=== PATIENT | male | born 1945 | race Caucasian/White ===

== ENCOUNTER 2018-10-10 08:01 | Outpatient (REF) | payer OTHER, SELFPAY ==
[2018-10-10 21:50] LABS: Anion Gap 8.2 mmol/L (3-11); BUN 16 mg/dL (7-18); CO2 28.8 mmol/L (21.0-32.0); CREATININE 1.62 mg/dL (0.70-1.30); Calcium 10.6 mg/dL (8.5-10.1); Calculated LDL 147 mg/dL; Chloride 105 mmol/L (98-107); Cholesterol 253 mg/dL (50-200); Estimated GFR 41.86 (mL/min/1.73m2); Glucose 107 mg/dL (70-100); HDL Cholesterol 73 mg/dL (40-60); Potassium 4.4 mmol/L (3.5-5.1); Sodium 142 mmol/L (136-145); Triglyceride 169 mg/dL (30-150)
[2018-10-13 07:12] LABS: Vitamin D 25 Total 76.5 ng/ml (30-100)
== END 2018-10-10 08:21 ==
LOC: NCHCN 08:01
PROVIDERS: PCP Internal Medicine; Visit Provider Internal Medicine
DX: E55.9 Vitamin D deficiency, unspecified (principal); E74.39 Other disorders of intestinal carbohydrate absorption; E78.5 Hyperlipidemia, unspecified; G35 Multiple sclerosis
CPT/HCPCS: 80048; 80061; 82306; 83721

== ENCOUNTER 2018-10-15 21:50 | Outpatient (REF) | payer OTHER, SELFPAY ==
[2018-10-15 21:27] LABS: Bilirubin Negative (Negative); Blood Negative (Negative); Clarity Cloudy (Clear); Glucose Negative (Negative); Ketones Negative (Negative); Leukocyte Esterase Large (Negative); Nitrite Positive (Negative); Specific Gravity 1.015 (1.005-1.025); Urobilinogen 0.2 EU/dL (Up TO 0.2); pH 8.5 (5-8)
[2018-10-15 22:21] LABS: Bacteria Moderate HPF (Negative); C & S Indicated? Yes; Casts Negative LPF (Negative); Crystals Rare Amorphous HPF (Negative); Epithelial Cells Rare HPF (Negative); Mucus Negative (Negative); Other Cells Negative (Negative); RBC Negative (0-2); WBC 20-50 HPF (0-5)
== END 2018-10-15 22:10 ==
LOC: NCHCN 21:50
PROVIDERS: PCP Internal Medicine; Visit Provider Internal Medicine
DX: N18.9 Chronic kidney disease, unspecified (principal); R82.90 Unspecified abnormal findings in urine
CPT/HCPCS: 81003; 81015; 82043; 82570; 87086

== ENCOUNTER 2018-11-11 12:30 | Outpatient (REF) | payer OTHER, SELFPAY ==
[2018-11-11 20:53] LABS: Abs Immature Grans 0.01 k/cumm (0.0-0.09); Absolute Basophil Count 0.04 k/cumm (0.0-0.2); Absolute Eosinophil Count 0.18 k/cumm (0.0-0.7); Absolute Lymphocyte Count 0.94 k/cumm (1.2-3.4); Absolute Monocyte Count 0.42 k/cumm (0.11-0.7); Absolute Neutrophil Count 2.07 k/cumm (1.2-6.7); Basophils % 1.1; Eosinophils % 4.9; HCT 41.1 % (40.0-50.0); HGB 13.3 g/dL (13.5-17.5); Immature Grans % 0.3; Lymphocytes % 25.7; Mean Corp. HGB Concentration 32.4 g/dL (32.0-36.0); Mean Corpuscular Hemoglobin 28.9 pg (27.0-33.0); Mean Corpuscular Volume 89.2 fL (80-95); Mean Platelet Volume 10.8 fL (8.0-11.0); Monocytes % 11.5; Neutrophils % 56.5; Platelet Count 246 x1000/uL (130-400); RBC 4.61 m/cumm (4.50-6.00); RBC Distribution Width 14.4 % (11.8-14.1); White Blood Cell Count 3.66 k/cumm (4.4-10.8)
[2018-11-11 21:06] LABS: BUN 17 mg/dL (7-18); C-Reactive Protein 0.51 mg/dL (0.0-0.3); Calcium 10.7 mg/dL (8.5-10.1); Chloride 105 mmol/L (98-107); Estimated GFR 59.18 (mL/min/1.73m2); Glucose 99 mg/dL (70-100); Sodium 141 mmol/L (136-145)
[2018-11-11 21:32] LABS: ESR 20 mm/hr (1-20)
== END 2018-11-11 12:50 ==
LOC: NCHCN 12:30
PROVIDERS: PCP Internal Medicine; Visit Provider Family Medicine
DX: N18.9 Chronic kidney disease, unspecified (principal); G62.9 Polyneuropathy, unspecified; L97.519 Non-pressure chronic ulcer of other part of right foot with unspecified severity; R73.02 Impaired glucose tolerance (oral)
CPT/HCPCS: 80048; 85652; 83036; 85025; 86140

== ENCOUNTER 2018-12-16 13:45 | Outpatient (REF) | payer OTHER, SELFPAY ==
[2018-12-18 15:08] LABS: Albumin 63.1 % (55.8-66.1); Total Protein 7.2 g/dl (6.3-8.2)
== END 2018-12-16 14:05 ==
LOC: NCHCN 13:45
PROVIDERS: PCP Internal Medicine; Visit Provider Internal Medicine
DX: D47.2 Monoclonal gammopathy (principal); D64.9 Anemia, unspecified; N18.9 Chronic kidney disease, unspecified; G62.9 Polyneuropathy, unspecified
CPT/HCPCS: 84165; 86320

== ENCOUNTER 2019-04-20 15:49 | Outpatient (REF) | payer OTHER, SELFPAY ==
[2019-04-20 21:46] LABS: Abs Immature Grans 0.02 k/cumm (0.0-0.09); Absolute Basophil Count 0.05 k/cumm (0.0-0.2); Absolute Eosinophil Count 0.26 k/cumm (0.0-0.7); Absolute Lymphocyte Count 1.27 k/cumm (1.2-3.4); Absolute Monocyte Count 0.48 k/cumm (0.11-0.7); Absolute Neutrophil Count 3.97 k/cumm (1.2-6.7); Basophils % 0.8; Eosinophils % 4.3; HCT 42.9 % (40.0-50.0); Immature Grans % 0.3 %; Mean Corp. HGB Concentration 32.6 g/dL (32.0-36.0); Mean Corpuscular Hemoglobin 28.5 pg (27.0-33.0); Mean Corpuscular Volume 87.4 fL (80-95); Mean Platelet Volume 10.7 fL (8.0-11.0); Monocytes % 7.9; Neutrophils % 65.7; Platelet Count 223 x1000/uL (130-400); RBC 4.91 m/cumm (4.50-6.00); RBC Distribution Width 14.9 % (11.8-14.1); White Blood Cell Count 6.05 k/cumm (4.4-10.8)
[2019-04-20 22:01] LABS: Hemoglobin A1C 6.2 % (3.8-5.6)
[2019-04-20 22:15] LABS: ALT 26 U/L (16-63); AST 23 U/L (15-37); Albumin 4.2 g/dL (3.4-5.0); Alkaline Phosphatase 74 U/L (46-116); Anion Gap 11.8 mmol/L (3-11); BUN 18 mg/dL (7-18); Bilirubin, Total 0.6 mg/dL (0.2-1.0); CO2 26.2 mmol/L (21.0-32.0); CREATININE 1.31 mg/dL (0.70-1.30); Chloride 103 mmol/L (98-107); Estimated GFR 53.49 (mL/min/1.73m2); Glucose 96 mg/dL (74-106); Potassium 5.1 mmol/L (3.5-5.1); Sodium 141 mmol/L (136-145); Total Protein 7.6 g/dL (6.4-8.2)
== END 2019-04-20 16:09 ==
LOC: NCHCN 15:49
PROVIDERS: PCP Internal Medicine; Visit Provider Internal Medicine
DX: D47.2 Monoclonal gammopathy (principal); R73.02 Impaired glucose tolerance (oral); M25.512 Pain in left shoulder
CPT/HCPCS: 80053; 83036; 85025

== ENCOUNTER 2020-04-28 13:57 | Outpatient (REF) | payer OTHER, SELFPAY ==
[2020-04-28 20:44] LABS: Anion Gap 6.4 mmol/L (3-11); BUN 12 mg/dL (7-18); CO2 28.6 mmol/L (21.0-32.0); CREATININE 1.2 mg/dL (0.70-1.30); Calcium 10.2 mg/dL (8.5-10.1); Chloride 103 mmol/L (98-107); Estimated GFR 59.02 (mL/min/1.73m2); Glucose 121 mg/dL (74-106); Potassium 4.6 mmol/L (3.5-5.1); Sodium 138 mmol/L (136-145)
[2020-04-28 20:46] LABS: HCT 45.7 % (40.0-50.0); HGB 14.2 g/dL (13.5-17.5); MCH 26.3 pg (27.0-33.0); MCHC 31.1 % (32.0-36.0); MCV 84.6 fL (80-95); MPV 10.4 fL (8.0-11.0); Platelet Count 230 10^3/uL (130-400); RDW 14.9 % (11.8-14.1); WBC 3.72 10^3/uL (4.4-10.8)
[2020-04-28 21:02] LABS: Hemoglobin A1C 6.3 % (<5.7)
[2020-05-02 06:01] LABS: Vitamin D 25 Total 109.7 ng/ml (30-100)
== END 2020-04-28 14:17 ==
LOC: NCHCN 13:57
PROVIDERS: PCP Internal Medicine; Visit Provider Internal Medicine
DX: D64.9 Anemia, unspecified (principal); R73.03 Prediabetes; N18.9 Chronic kidney disease, unspecified; E67.3 Hypervitaminosis D
CPT/HCPCS: 80048; 82306; 85027; 83036

== ENCOUNTER 2020-10-26 10:10 | Outpatient (REF) | payer OTHER, SELFPAY ==
[2020-10-26 14:41] LABS: ALT 19 U/L (16-63); AST 16 U/L (15-37); Alkaline Phosphatase 110 U/L (46-116); Anion Gap 9.2 mmol/L (3-11); BUN 12 mg/dL (7-18); Bilirubin, Total 0.3 mg/dL (0.2-1.0); CO2 27.8 mmol/L (21.0-32.0); CREATININE 1.2 mg/dL (0.70-1.30); Chloride 105 mmol/L (98-107); Estimated GFR 58.86 (mL/min/1.73m2); Glucose 124 mg/dL (74-106); Potassium 5.2 mmol/L (3.5-5.1); Sodium 142 mmol/L (136-145); Total Protein 7.1 g/dL (6.4-8.2)
[2020-10-26 15:41] LABS: Hemoglobin A1C 6.1 % (<5.7)
[2020-10-27 01:43] LABS: Vitamin D 25 Total 85.9 ng/mL (30-100)
== END 2020-10-26 10:11 | disposition home or self-care (01) ==
LOC: NCHCN 10:10
PROVIDERS: PCP Internal Medicine; Visit Provider Internal Medicine
DX: R73.03 Prediabetes (principal); G35 Multiple sclerosis; E55.9 Vitamin D deficiency, unspecified; N18.9 Chronic kidney disease, unspecified
CPT/HCPCS: 80053; 82306; 83036

== ENCOUNTER 2021-04-26 17:04 | Outpatient (REF) | payer OTHER, SELFPAY ==
[2021-04-26 18:37] LABS: Anion Gap 10.3 mmol/L (3-11); BUN 13 mg/dL (7-18); CO2 27.7 mmol/L (21.0-32.0); CREATININE 1.3 mg/dL (0.70-1.30); Calcium 10.3 mg/dL (8.5-10.1); Chloride 102 mmol/L (98-107); Estimated GFR 53.67 (mL/min/1.73m2); Glucose 151 mg/dL (74-106); Potassium 4.6 mmol/L (3.5-5.1); Sodium 140 mmol/L (136-145)
[2021-04-26 18:41] LABS: Hemoglobin A1C 6.1 % (<5.7)
[2021-04-27 00:45] LABS: Vitamin D 25 Total 78.3 ng/mL (30-100)
== END 2021-04-26 17:05 | disposition home or self-care (01) ==
LOC: NCHCN 17:04
PROVIDERS: PCP Internal Medicine; Visit Provider Internal Medicine
DX: R73.03 Prediabetes (principal); N18.9 Chronic kidney disease, unspecified; E55.9 Vitamin D deficiency, unspecified; G35 Multiple sclerosis; D64.9 Anemia, unspecified
CPT/HCPCS: 80048; 82306; 83036

== ENCOUNTER 2022-06-13 17:30 | Outpatient (REF) | payer MEDICARE, SELFPAY ==
[2022-06-13 21:19] LABS: Vitamin D 25 Total 79.7 ng/mL (30-100)
== END 2022-06-13 17:31 | disposition home or self-care (01) ==
LOC: NCHCN 17:30
PROVIDERS: PCP Internal Medicine; Visit Provider Internal Medicine
DX: E55.9 Vitamin D deficiency, unspecified (principal); R73.03 Prediabetes; G35 Multiple sclerosis
CPT/HCPCS: 82306

== ENCOUNTER 2023-06-10 17:25 | Outpatient (REF) | payer MEDICARE, SELFPAY ==
[2023-06-10 20:10] LABS: HCT 43.8 % (40.0-50.0); MCV 88 fL (80-95); MPV 11.3 fL (8.0-11.0); Platelet Count 195 10^3/uL (130-400); RDW 14.5 % (11.8-14.1); RDW-SD 46.2 fL; WBC 3.66 10^3/uL (4.4-10.8)
[2023-06-10 20:26] LABS: ALT 30 U/L (16-63); AST 23 U/L (15-37); Albumin 3.9 g/dL (3.4-5.0); Alkaline Phosphatase 78 U/L (46-116); Anion Gap 10.8 mmol/L (3-11); BUN 11 mg/dL (7-18); Bilirubin, Total 0.4 mg/dL (0.2-1.0); CO2 26.2 mmol/L (21.0-32.0); CREATININE 1.4 mg/dL (0.70-1.30); Calcium 10.6 mg/dL (8.5-10.1); Calculated LDL 157 mg/dL (<100); Chloride 104 mmol/L (98-107); Cholesterol 267 mg/dL (<200); Estimated GFR 51.45 (mL/min/1.73m2); Glucose 189 mg/dL (74-106); HDL Cholesterol 72 mg/dL (40-60); Potassium 4.6 mmol/L (3.5-5.1); Sodium 141 mmol/L (136-145); Total Protein 7.4 g/dL (6.4-8.2); Triglyceride 194 mg/dL (<150)
[2023-06-10 20:32] LABS: Hemoglobin A1C 6.4 % (<5.7)
[2023-06-10 20:49] LABS: Vitamin D 25 Total 66.9 ng/mL (30-100)
== END 2023-06-10 17:26 | disposition home or self-care (01) ==
LOC: NCHCN 17:25
PROVIDERS: PCP Internal Medicine; Visit Provider Internal Medicine
DX: E78.5 Hyperlipidemia, unspecified (principal); R73.03 Prediabetes; E55.9 Vitamin D deficiency, unspecified; N18.9 Chronic kidney disease, unspecified
CPT/HCPCS: 80053; 80061; 82306; 85027; 83036

== ENCOUNTER 2023-10-11 23:33 | Outpatient (REF) | payer MEDICARE, SELFPAY ==
[2023-10-11 15:02] LABS: HCT 43.8 % (40.0-50.0); HGB 13.9 g/dL (13.5-17.5); MCH 27.9 pg (27.0-33.0); MCHC 31.7 % (32.0-36.0); MCV 88 fL (80-95); MPV 10.8 fL (8.0-11.0); Platelet Count 183 10^3/uL (130-400); RBC 4.98 10^6/uL (4.36-5.78); RDW 14.5 % (11.8-14.1); RDW-SD 45.9 fL; WBC 4.71 10^3/uL (4.4-10.8)
[2023-10-11 15:04] LABS: Anion Gap 7.2 mmol/L (3-11); BUN 12 mg/dL (7-18); CO2 30.8 mmol/L (21.0-32.0); CREATININE 1.3 mg/dL (0.70-1.30); Calcium 10.5 mg/dL (8.5-10.1); Chloride 105 mmol/L (98-107); Estimated GFR 55.88 (mL/min/1.73m2); Glucose 217 mg/dL (74-106); Potassium 4.8 mmol/L (3.5-5.1); Sodium 143 mmol/L (136-145)
[2023-10-11 16:04] LABS: Hemoglobin A1C 7.2 % (<5.7)
[2023-10-14 10:32] LABS: Parathyroid Hormone,Intact 66 pg/mL (19-88)
== END 2023-10-11 23:34 | disposition home or self-care (01) ==
LOC: NCHCN 23:33
PROVIDERS: PCP Internal Medicine; Visit Provider Internal Medicine
DX: R73.03 Prediabetes (principal); N18.9 Chronic kidney disease, unspecified
CPT/HCPCS: 80048; 85027; 83036; 83970

== ENCOUNTER 2023-10-16 11:53 | Outpatient (REF) | payer MEDICARE, SELFPAY ==
[2023-10-16 20:11] LABS: COMMENT (LAB VIEW ONLY) 114.35 mg/dL; Microalb ug/mg Crea 71.8 ug/mg Cr
== END 2023-10-16 11:54 | disposition home or self-care (01) ==
LOC: NCHCN 11:53
PROVIDERS: PCP Internal Medicine; Visit Provider Internal Medicine
DX: R73.03 Prediabetes (principal)
CPT/HCPCS: 82043; 82570

== ENCOUNTER 2024-10-27 15:32 | Outpatient (REF) | payer MEDICARE, SELFPAY ==
[2024-10-27 21:48] LABS: HCT 44.1 % (40.0-50.0); HGB 14.1 g/dL (13.5-17.5); MCH 27.3 pg (27.0-33.0); MCHC 32.0 % (32.0-36.0); MCV 85 fL (80-95); MPV 11.1 fL (8.0-11.0); Platelet Count 199 10^3/uL (130-400); RBC 5.17 10^6/uL (4.36-5.78); RDW 15.2 % (11.8-14.1); RDW-SD 47.2 fL; WBC 4.19 10^3/uL (4.4-10.8)
[2024-10-27 22:11] LABS: ALT 25 U/L (16-63); AST 22 U/L (15-37); Albumin 3.9 g/dL (3.4-5.0); Alkaline Phosphatase 90 U/L (46-116); Anion Gap 9.3 mmol/L (3-11); BUN 22 mg/dL (7-18); Bilirubin, Total 0.5 mg/dL (0.2-1.0); CO2 26.7 mmol/L (21.0-32.0); Calcium 10.2 mg/dL (8.5-10.1); Calculated LDL 78 mg/dL (<100); Chloride 105 mmol/L (98-107); Cholesterol 187 mg/dL (<200); Estimated GFR 61.13 (mL/min/1.73m2); Glucose 135 mg/dL (74-106); HDL Cholesterol 75 mg/dL (>or=40); Potassium 4.3 mmol/L (3.5-5.1); Sodium 141 mmol/L (136-145); Total Protein 7.5 g/dL (6.4-8.2); Triglyceride 171 mg/dL (<150)
[2024-10-27 22:14] LABS: Hemoglobin A1C 6.5 % (<5.7)
== END 2024-10-27 15:33 | disposition home or self-care (01) ==
LOC: NCHCN 15:32
PROVIDERS: PCP Internal Medicine; Visit Provider Internal Medicine
DX: E11.9 Type 2 diabetes mellitus without complications (principal)
CPT/HCPCS: 80053; 80061; 85027; 83036